=== PATIENT | female | born 2000 | race Caucasian/White ===

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

== ENCOUNTER → 2021-01-11 14:55 | Outpatient (BNVA) | payer BC, SELFPAY | PROVIDERS: PCP Nurse Practitioner Family; Visit Provider Nurse Practitioner Women's Health | DX: R10.2 Pelvic and perineal pain (principal); N93.9 Abnormal uterine and vaginal bleeding, unspecified | CPT/HCPCS: 84443; 84702; 85025; 87491; 87591; 87661 ==

== ENCOUNTER → 2021-01-16 14:00 | Outpatient (BNVA) | payer BC, SELFPAY | PROVIDERS: PCP Nurse Practitioner Family; Visit Provider Nurse Practitioner Women's Health | DX: R10.32 Left lower quadrant pain (principal) | CPT/HCPCS: 76830 ==

== ENCOUNTER 2021-01-31 23:41 | Emergency (ER) | payer OTHER, SELFPAY ==
--- NOTE | 2021-01-31 23:46 | ED_ITS ---
HPI - Wound/Laceration General: Chief Complaint: Needlestick/Injury/Exposure Stated Complaint: NEED STICK Time Seen by Provider: 01/31/21 23:43 History of Present Illness: HPI narrative: Patient is a 20-year-old female comes to the ED with exposure to body fluids from patient. 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 She said that when she poked the patient quite a bit of blood started coming out and she went to close her needle with the safety. As she was closing the safety on the needle some blood splashed in her face near her eye. Patient immediately washed off blood. Denies any needle stick injury. Denies any symptoms. Associated symptoms: Denies chills, fever(s), nausea or vomiting Review of Systems Narrative: Accidental exposure to body fluids. Const: Denies: fever(s), chills or fatigue Eyes: Denies: change in vision or eye discomfort ENMT: Denies: throat pain, odynophagia, nasal discharge or nasal congestion Card: Denies: chest pain, palpitations, edema, swelling of feet/ankles, dyspnea on exertion or orthopnea Resp: Denies: dyspnea, productive cough or non-productive cough GI: Denies: abdominal pain, nausea, vomiting, diarrhea, constipation or hematochezia : Denies: flank pain, dysuria or hematuria Musc: Denies: neck pain, back pain or extremity swelling Skin/Breast: Denies: rash or new lesions Neuro: Denies: headache(s), numbness in extremities or weakness in extremities [facility] PFSH: Medical History History of tonsillitis No pertinent past medical history neghx: htn,dm,thyroid,dvt/pe PCP: Yusra Mills Surgical History History of reduction mammoplasty (~2019) Family History Grandmother Breast cancer Paternal--dx age unknown Diabetes Paternal Ovarian cancer Maternal--dx age 30 Father Hypertension Mother No problems noted. Family/Other Thyroid disease Paternal side in general Other Psychiatric illness Denies family history of Colon cancer Heart disease Hypercholesteremia Uterine cancer Stroke Social History Smoking and tobacco status: never smoked Alcohol intake: never Special daron needs: No Physical Exam Const: COMMON NORMALS: no acute distress, patient oriented x3, healthy appearing and alert GENERAL APPEARANCE: cooperative and comfortable HENMT: COMMON NORMALS: normocephalic HEAD & SCALP: normocephalic MOUTH: Normal oral and palatal mucosa present THROAT: posterior oropharynx normal and uvula midline Neck/C-Spine: COMMON NORMALS: supple GENERAL: Yes normal visual inspection Resp: COMMON NORMALS: normal respiratory effort, No retractions, No use of accessory muscles and clear to auscultation bilaterally AUSCULTATION: clear to auscultation bilaterally Cardio: COMMON NORMALS: regular rate, regular rhythm, S1 normal heart sound present, S2 normal heart sound present, No gallops present (Cardio), No clicks present (Cardio), No murmurs present (Cardio) and Peripheral pulses 2+ throughout RATE: regular rate RHYTHM: regular rhythm HEART SOUNDS: S1 normal heart sound present and S2 normal heart sound present PERIPHERAL PULSES: Peripheral pulses 2+ throughout GI: COMMON NORMALS: Normal to inspection, nondistended, normoactive bowel sounds present, Soft to palpation, non-tender and no masses PALPATION: Yes Soft to palpation : COMMON NORMALS: Yes no CVA tenderness BLADDER/KIDNEY EXAM: Yes no CVA tenderness Back/Pelvis: COMMON NORMALS: no CVA tenderness Extremity: COMMON NORMALS: normal to inspection Neuro: COMMON NORMALS: patient oriented x3 SENSORIUM/ORIENTATION: Yes alert Skin: GENERAL SKIN EXAM: dry skin Course Vital Signs: Vital signs: Vital Signs Temperature 97.8 F 02/01/21 00:12 Pulse Rate 77 02/01/21 00:12 Respiratory Rate 18 02/01/21 00:12 Blood Pressure 116/72 02/01/21 00:12 Pulse Oximetry 99 02/01/21 00:12 MDM - Wound/Laceration MDM Narrative: Medical decision making narrative: Patient is a 20-year-old female comes in the ED with accidental body and body fluid exposure. Patient is a program administrator here at [employer] and says that when she was getting blood from a patient some splashed on her face near her right eye. She immediately cleaned it off and is asymptomatic and has no complaints. Hepatitis and HIV labs were performed and all were nonreactive. Patient was instructed to have repeat hepatitis and HIV labs done in 2 to 4 months. Return to ED precautions given. Worker's Comp. paperwork was filled out and signed. Patient understood and agreed with plan. Lab Data: Labs: Lab Results 01/31/21 01/31/21 Range/Units 23:40 23:40 Hepatitis A IgM Ab Non-reactive (Nonreactive) Hep Bs Antigen Non-reactive (Nonreactive) Hep Bs Antibody 29.1 (11.5-1000) Hep B Core Total A b Non-reactive (Nonreactive) Hepatitis C Antibo dy Non-reactive (Nonreactive) HIV 1&2 Ab & HIV 1 Ag Non-reactive (Non-Reactiv) HIV 1&2 Antibody Non-reactive (Non-Reactiv) Discharge Plan Discharge Patient Disposition: Home Clinical Impression: Exposure to blood or body fluid Condition: Stable Prescriptions: No Action albuterol sulfate 90 mcg/actuation HFA aerosol inhaler 2 puff inhalation Q6H PRNRF: 0 medroxyprogesterone [Depo-Provera] 150 mg/mL suspension IM RF: 0 Discharge Orders: Discharge ED (Routine); Ordered 02/01/21 Ordered By: Bartolome Garnica Referrals: Yusra Mills FNP [Primary Care Provider] - Discharge Diet: Regular Discharge Activity: Resume usual activity Patient Instructions: Blood/Body Fluid Exposure - Occupational, Body Substance Exposure (ED) Activity Restrictions/Additional Instructions: Follow-up with medical provider as directed. Have repeat HIV and hepatitis panel labs done in the next 2 to 4 months. Return to the ER or your medical provider if condition worsens. Please read and understand discharge instructions. Thank you for choosing [facility] for your healthcare needs today. Please realize this is an emergency room and that we are providing you with a medical screening exam and this may not be complete and all inclusive of all the testing and or work up that you may need to determine your ailment or severity of your illness. It is very important that you follow up as instructed or that you return to the Emergency Department should you have concerns or if your condition changes or worsens in any way. Coding Level of Care Code ED Boiler Repair Supervisor for Radha Fwclaudio Exam Detailed
[2021-02-01 00:12] VITALS: BP 116/72; PULSE 77; RESP 18; TEMP 36.6; O2SAT 99; BMI 23.3
[2021-02-01 00:31] LABS: HIV 1 & 2 Antibody Non-Reactive (Non-Reactiv); HIV 1 & 2 Antigen Non-Reactive (Non-Reactiv)
[2021-02-01 00:44] LABS: Hepatitis A Antibody IgM Non-Reactive (Nonreactive); Hepatitis B Core AB, Total Non-Reactive (Nonreactive); Hepatitis B Surface AB 29.1 (11.5-1000); Hepatitis B Surface Antigen Non-Reactive (Nonreactive); Hepatitis C Virus Antibody Non-Reactive (Nonreactive)
== END 2021-02-01 00:22 | disposition home or self-care (01) ==
LOC: ER 02-01 00:19
PROVIDERS: Emergency Provider Physician Assistant; PCP Nurse Practitioner Family
DX: Z77.21 Contact with and (suspected) exposure to potentially hazardous body fluids (principal); Y99.0 Civilian activity done for income or pay
CPT/HCPCS: 86705; 86706; 86709; 86803; 87340; 87806; 99282

== ENCOUNTER 2021-08-04 17:20 | Emergency (ER) | payer BC, SELFPAY ==
[2021-08-04 17:25] VITALS: BP 131/91; PULSE 96; RESP 18; TEMP 36.7; O2SAT 97; BMI 25.8
--- NOTE | 2021-08-04 17:31 | ED_ITS ---
HPI - Nausea/Vomiting/Diarrhea General: Chief complaint: Nausea/Vomiting/Diarrhea Stated complaint: Nausea after Tonsillectomy Time Seen by Provider: 08/04/21 17:31 History of Present Illness: HPI Narrative: 20-year-old female comes in for evaluation for nausea and vomiting. Patient had her tonsils removed on the by Dr. Balderas. Today patient was throwing up and was eating poorly. Mother reports that patient family has issues with nausea and vomiting post anesthesia. Mother did report last night she had a small amount of blood in 1 emesis. No blood has been noted today. Patient appears mildly unwell. Patient appears no acute distress. Patient appears in mild to moderate pain. Associated nausea: Yes Associated symtoms: Reports nausea Review of Systems General: Reports: 10 or more systems reviewed and unremarkable except in HPI and below GI: Reports: nausea and vomiting PFSH ED PFSH: Medical History History of tonsillitis No pertinent past medical history neghx: htn,dm,thyroid,dvt/pe PCP: Yusra Mills Surgical History History of reduction mammoplasty (~2019) Family History Grandmother Breast cancer Paternal--dx age unknown Diabetes Paternal Ovarian cancer Maternal--dx age 30 Father Hypertension Mother No problems noted. Family/Other Thyroid disease Paternal side in general Other Psychiatric illness Denies family history of Colon cancer Heart disease Hypercholesteremia Uterine cancer Stroke Social History Smoking and tobacco status: never smoked Alcohol intake: never Special daron needs: No Physical Exam Const: COMMON NORMALS: no acute distress and patient oriented x3 GENERAL APPEARANCE: cooperative HENMT: COMMON NORMALS: normocephalic, TM's normal bilaterally and Normal external nose present HEAD & SCALP: normal to inspection and normocephalic NOSE: Normal external nose present TYMPANIC MEMBRANE: TM's normal bilaterally MOUTH: Normal oral and palatal mucosa present THROAT: other (Exudate to bilateral throat, absent tonsils, no significant swelling or asy) Eye: GENERAL EYE: appearance normal, both eyes and all related structures Neck/C-Spine: COMMON NORMALS: full ROM Lymph: LYMPHATIC: no lymphadenopathy noted Chest: COMMONS NORMALS: normal inspection of the chest Resp: COMMON NORMALS: normal respiratory effort EFFORT & INSPECTION: Yes able to speak in complete sentences Cardio: COMMON NORMALS: regular rate and regular rhythm RATE: regular rate RHYTHM: regular rhythm GI: COMMON NORMALS: Soft to palpation and non-tender AUSCULTATION: Yes normoactive bowel sounds PALPATION: Yes Soft to palpation Back/Pelvis: COMMON NORMALS: thoracic and lumbar spine normal to inspection Extremity: COMMON NORMALS: normal to inspection Neuro: COMMON NORMALS: patient oriented x3 and moves all extremities Psych: COMMON NORMALS: mental status grossly normal and cooperative Skin: COMMON NORMALS: no rashes or lesions noted GENERAL SKIN EXAM: no rashes or lesions noted Course ED course: 1834, patient is much improved and is more relaxed after half a milligram of IV Ativan. Patient continues to have some mild nausea but states that she feels better. We are infusing 1 L of IV fluid. Patient will be given 2 mg of IV morphine for her complaints of throat discomfort. I will give her 1 dose of famotidine 40 mg for some complaints of reflux. 1914, patient continues to improve and her and her mother request to go home. Recommended that we hold the gabapentin as this may be causing her lability and hyperkinesia. Mother agreed with planned. Patient also agreed with instructions. Vital Signs: Vital signs: Vital Signs Temperature 98.1 F 08/04/21 17:25 Pulse Rate 107 H 08/04/21 17:52 Respiratory Rate 16 08/04/21 18:43 Blood Pressure 141/84 08/04/21 17:52 Pulse Oximetry 98 08/04/21 17:52 MDM - Nausea/Vomiting/Diarrhea MDM Narrative: Medical decision making narrative: Patient came in for nausea and vomiting, irritability, and restlessness. Patient reports that she has been using the gabapentin that had been ordered for her after surgery to help with nausea and vomiting. Patient reports increase in symptoms and restlessness and mobility at with using medication. On exam posterior pharynx is pink with some exudate in the areas of tonsillar extraction. No significant swelling or abnormality is noted. No anterior cervical lymphadenopathy. Patient has normal voice. Vital signs are normal. Differential diagnosis includes but not limited to adverse drug effect due to gabapentin/anesthesia, urinary tract infection, dehydration. Laboratory values were unremarkable. Patient was given 1 L of IV fluids, Zofran, and 2 mg of Ativan for her symptoms. Patient had improvement of nausea. Patient had been reporting some complaints of reflux she was given famotidine IV. Patient had some throat discomfort and was treated with 2 mg of morphine IV. Patient had cessation of symptoms will continue with Zofran and hydrocodone at home and will stop the Neurontin. Patient was given 2 tablets of Zofran to take home with her. Lab Data: Labs: Lab Results 08/04/21 08/04/21 08/04/21 18:04 18:04 18:04 WBC 7.5 10^3/uL 10^3/ uL (4.5-13.0) RBC 4.51 10^6/uL 10^6 /uL (4.1-5.3) Hgb 13.0 g/dL g/dL (11.5-15.3) Hct 39.4 % % (37.0-47.0) MCV 87.4 fl fl (81-99) MCH 28.8 pg pg (28.0-34.0) MCHC 33.0 g/dL g/dL (30.0-36.0) RDW 11.5 % L % (12.1-15.1) Plt Count 289 10^3/cmm 10^3 /cmm (130-400) MPV 10.0 fL fL (7.4-10.4) Neut % (Auto) 57.8 % % Lymph % (Auto) 29.5 % % [place] % (Auto) 9.9 % % Eos % (Auto) 1.7 % % Baso % (Auto) 0.8 % % Neut # (Auto) 4.33 10^3/uL 10^3 /uL (1.8-8.0) Lymph # (Auto) 2.2 10^3/uL 10^3/ uL (1.5-6.5) [place] # (Auto) 0.7 10^3/uL 10^3/ uL (0.2-0.9) Eos # (Auto) 0.1 10^3/uL 10^3/ uL (0.0-0.8) Baso # (Auto) 0.1 10^3/uL 10^3/ uL (0.0-0.1) Nucleated RBC % (a uto) 0 % % Nucleated RBCs # 0.0 /100WBC /100W BC Sodium 134 mmol/L L mmol /L (136-145) Potassium 3.8 mmol/L mmol/L (3.5-5.1) Chloride 98 mmol/L mmol/L (98-107) Carbon Dioxide 25 mmol/L mmol/L (22-29) Anion Gap 14.8 (5-19) BUN 11 mg/dL mg/dL (6-20) Creatinine 0.6 mg/dL mg/dL (0.5-0.9) GFR Calculation 128.8 mL/min mL/m in (90-130) Glucose 95 mg/dL mg/dL (65-115) Calculated Osmolal ity 277 mOsm/kg L mOs m/kg (285-295) Calcium 9.3 mg/dL mg/dL (8.5-10.5) Total Bilirubin 0.3 mg/dL mg/dL (0.15-1.2) AST 15 U/L U/L (0-32) ALT 11 U/L U/L (0-33) Alkaline Phosphata se 53 IU/L IU/L (35-105) Total Protein 7.1 g/dL g/dL (6.6-8.7) Albumin 4.5 g/dL g/dL (3.5-5.2) Globulin 2.6 g/dL g/dL (1.3-4.6) HCG, Qual Negative (Negative) Urine Color Urine Appearance Urine pH Ur Specific Gravit y Urine Protein Urine Glucose (UA) Urine Ketones Urine Blood Urine Nitrate Urine Bilirubin Urine Urobilinogen Ur Leukocyte Chary ase Urine RBC Urine WBC Ur Squamous Epith Cells Amorphous Sediment Urine Bacteria 08/04/21 18:04 WBC RBC Hgb Hct MCV MCH MCHC RDW Plt Count MPV Neut % (Auto) Lymph % (Auto) [place] % (Auto) Eos % (Auto) Baso % (Auto) Neut # (Auto) Lymph # (Auto) [place] # (Auto) Eos # (Auto) Baso # (Auto) Nucleated RBC % (a uto) Nucleated RBCs # Sodium Potassium Chloride Carbon Dioxide Anion Gap BUN Creatinine GFR Calculation Glucose Calculated Osmolal ity Calcium Total Bilirubin AST ALT Alkaline Phosphata se Total Protein Albumin Globulin HCG, Qual Urine Color Straw (Yellow) Urine Appearance Sl hazy (CLEAR) Urine pH 6.5 (5-7) Ur Specific Gravit y 1.010 (1.005-1.030) Urine Protein Neg (Negative) Urine Glucose (UA) Norm (Normal) Urine Ketones Negative (Negative) Urine Blood Neg (Negative) Urine Nitrate Negative (Negative) Urine Bilirubin Neg (Negative) Urine Urobilinogen Norm mg/dL mg/dL (Negative) Ur Leukocyte Chary ase Negative (Negative) Urine RBC 0-4 /hpf H /hpf (0-2) Urine WBC 5-10 /hpf H /hpf (0-5) Ur Squamous Epith Cells 25-40 /hpf H /hpf (0-5) Amorphous Sediment 2+ /hpf /hpf Urine Bacteria 3+ /hpf H /hpf (NONE) Discharge Plan Discharge Patient Disposition: Home Clinical Impression: S/P tonsillectomy Nausea & vomiting Qualifiers: Vomiting type: unspecified Vomiting Intractability: non-intractable Qualified Code(s): R11.2 - Nausea with vomiting, unspecified Adverse drug effect Qualifiers: Encounter type: initial encounter Qualified Code(s): T50.905A - Adverse effect of unspecified drugs, medicaments and biological substances, initial encounter Condition: Stable Prescriptions: New ondansetron 4 mg tablet,disintegrating 4 mg PO Q6H PRN (Reason: nausea and vomiting) Qty: 14 RF: 0 No Action albuterol sulfate 90 mcg/actuation HFA aerosol inhaler 2 puff inhalation Q6H PRNRF: 0 medroxyprogesterone [Depo-Provera] 150 mg/mL suspension IM RF: 0 Discharge Orders: Discharge ED (Routine); Ordered 08/04/21 Ordered By: Shyam Cristobal Referrals: [facility], [Primary Care Provider] - Discharge Diet: Usual diet Discharge Activity: Increase activity as tolerated Patient Instructions: Acute Nausea and Vomiting (ED), Opioid Safety Activity Restrictions/Additional Instructions: Home and rest. Drink frequent sips of fluids to maintain hydration. Stop gabapentin, Neurontin. Use ondansetron for nausea and vomiting. Monitor for fever greater than 100.4. Monitor for increased bleeding with blood in vomit or stool. Return to the ER for any new concerns or worsening symptoms. Follow-up with surgeons as needed. Coding Level of Care Code ED Ironer Machine for Radha Fwd Exam Comprehensive
[2021-08-04 17:52] VITALS: BP 141/84; PULSE 107; RESP 20; O2SAT 98
[2021-08-04] MEDS: dexamethasone 4 mg/mL INJ IVP (18:00)
[2021-08-04] MEDS: ondansetron 2 mg/ML SDV 2 mL 4 MG IVP (18:09)
[2021-08-04 18:10] LABS: Basophils # 0.1 10^3/uL (0.0-0.1); Basophils % 0.8 %; Eosinophils # 0.1 10^3/uL (0.0-0.8); Eosinophils % 1.7 %; Hematocrit 39.4 % (37.0-47.0); Lymphocytes # 2.2 10^3/uL (1.5-6.5); Lymphocytes % 29.5 %; Mean Corpuscular Hemoglobin 28.8 pg (28.0-34.0); Mean Corpuscular Volume 87.4 fl (81-99); Monocytes # 0.7 10^3/uL (0.2-0.9); Monocytes % 9.9 %; Neutrophils # 4.33 10^3/uL (1.8-8.0); Neutrophils % 57.8 %; Nucleated Red Blood Cells % 0 %; Platelet Count 289 10^3/cmm (130-400); Red Blood Count 4.51 10^6/uL (4.1-5.3); Red Cell Distribution Width 11.5 % (12.1-15.1); White Blood Count 7.5 10^3/uL (4.5-13.0)
[2021-08-04] MEDS: LORazepam 2 mg/mL INJ 1 mL 0.5 MG IVP (18:10)
[2021-08-04] MEDS: sodium chloride 0.9% 1,000 ML 999 ML IV (18:10)
[2021-08-04 18:25] LABS: Urine Appearance SL Hazy (CLEAR); Urine Color Straw (Yellow)
[2021-08-04 18:26] LABS: pH Urine 6.5 (5-7)
[2021-08-04 18:27] LABS: Add Urine Microscopic? YES; Bilirubin Urine Neg (Negative); Blood Urine Neg (Negative); Glucose Urine UA Norm (Normal); Ketones Urine Negative (Negative); Leukocyte Esterase Urine Negative (Negative); Nitrate Urine Negative (Negative); Protein Urine Neg (Negative); Urobilinogen Urine Norm (Negative)
[2021-08-04 18:28] LABS: RBC Urine 0-4 /hpf (0-2)
[2021-08-04 18:29] LABS: Add Urine Culture? No; Amorphous Sediment Urine 2+ /hpf; Bacteria Urine 3+ /hpf; Squamous Epithelial Cell Urine 25-40 /hpf (0-5)
--- NOTE | 2021-08-04 18:31 | PC.NURSE ---
Pt states she feels like she has been able to calm down after getting to Ativan but states she is still having pain in her throat from all the vomiting. [employer] Susu advised, new orders entered.
[2021-08-04 18:43] VITALS: RESP 16
[2021-08-04] MEDS: famotidine 20 mg/2 mL INJ 40 MG IVP (18:43)
[2021-08-04] MEDS: morphine 4 mg/mL SDV 1 mL 2 MG IVP (18:43)
[2021-08-04 18:45] LABS: HCG, Serum Qual Negative (Negative)
[2021-08-04 18:47] LABS: Alanine Aminotransferase 11 U/L (0-33); Albumin Level 4.5 g/dL (3.5-5.2); Alkaline Phosphatase 53 IU/L (35-105); Anion Gap 14.8 (5-19); Aspartate Amino Transferase 15 U/L (0-32); Blood Urea Nitrogen 11 mg/dL (6-20); Calcium 9.3 mg/dL (8.5-10.5); Carbon Dioxide 25 mmol/L (22-29); Chloride 98 mmol/L (98-107); Globulin 2.6 g/dL (1.3-4.6); Glomerular Filtration Rate 128.8 mL/min (90-130); Glucose 95 mg/dL (65-115); Osmolality Calculated 277 mOsm/kg (285-295); Potassium 3.8 mmol/L (3.5-5.1); Sodium 134 mmol/L (136-145); Total Bilirubin 0.3 mg/dL (0.15-1.2); Total Protein 7.1 g/dL (6.6-8.7)
--- NOTE | 2021-08-04 18:56 | PC.NURSE ---
pt refused Dexamethasone
[2021-08-04 19:34] VITALS: BP 141/87; PULSE 78; RESP 16; TEMP 37.1; O2SAT 98
== END 2021-08-04 19:38 | disposition home or self-care (01) ==
PROVIDERS: Emergency Provider Nurse Practitioner Family
DX: R11.2 Nausea with vomiting, unspecified (principal); T50.905A Adverse effect of unspecified drugs, medicaments and biological substances, initial encounter; Z98.890 Other specified postprocedural states
CPT/HCPCS: 80053; 81001; 84703; 85025; 96361; 96374; 96375; 99284; J1100; J2060; J2270; J2405; J3490; J7030

== ENCOUNTER → 2021-11-12 09:21 | Outpatient (BNVA) | payer BC, SELFPAY | PROVIDERS: Visit Provider Family Medicine | DX: R19.8 Other specified symptoms and signs involving the digestive system and abdomen (principal); N39.0 Urinary tract infection, site not specified | CPT/HCPCS: 81000 ==

== ENCOUNTER 2021-11-14 08:50 | Outpatient (CLI) | payer BC, SELFPAY ==
--- NOTE | 2021-11-14 09:26 | XR_ITS ---
WS: [id number] KUB, AP view, 11/14/2021 Clinical Data: LUQ pain, nausea and vomiting Comparison: None. Findings: No abnormal intraabdominal masses or calcifications are seen. There is no dilatated small bowel or ev idence of obstruction. There is a moderate amount of fecal material throughout the colon. XR/XR KUB [id number] Impression: Negative KUB.
[2021-11-14 09:43] LABS: Basophils # 0.1 10^3/uL (0.0-0.1); Basophils % 1.8 %; Eosinophils # 0.1 10^3/uL (0.0-0.8); Eosinophils % 2.8 %; Hematocrit 38.9 % (37.0-47.0); Hemoglobin 11.9 g/dL (11.5-15.3); Lymphocytes # 1.6 10^3/uL (1.5-6.5); Lymphocytes % 49.5 %; Mean Corpuscular HGB Conc 30.6 g/dL (30.0-36.0); Mean Corpuscular Volume 84.9 fl (81-99); Mean Platelet Volume 10.6 fL (7.4-10.4); Monocytes # 0.4 10^3/uL (0.2-0.9); Monocytes % 11.6 %; Neutrophils # 1.12 10^3/uL (1.8-8.0); Neutrophils % 34.3 %; Nucleated Red Blood Cells % 0 %; Platelet Count 290 10^3/cmm (130-400); Red Blood Count 4.58 10^6/uL (4.1-5.3); Red Cell Distribution Width 12.8 % (12.1-15.1); White Blood Count 3.3 10^3/uL (4.5-13.0)
[2021-11-14 10:00] LABS: HCG Qualitative Urine. Negative (Negative)
[2021-11-14 10:10] LABS: Alanine Aminotransferase 22 U/L (0-33); Albumin Level 4.9 g/dL (3.5-5.2); Alkaline Phosphatase 63 IU/L (35-105); Blood Urea Nitrogen 8 mg/dL (6-20); Calcium 8.7 mg/dL (8.5-10.5); Carbon Dioxide 23 mmol/L (22-29); Chloride 108 mmol/L (98-107); Globulin 2.1 g/dL (1.3-4.6); Glomerular Filtration Rate 92.4 mL/min (90-130); Glucose 89 mg/dL (65-115); Lipase 38 U/L (13-60); Osmolality Calculated 294 mOsm/kg (285-295); Sodium 143 mmol/L (136-145); Total Bilirubin 0.6 mg/dL (0.15-1.2)
[2021-11-14 10:12] LABS: Anion Gap 16.2 (5-19); Aspartate Amino Transferase 73 U/L (0-32); Potassium 4.2 mmol/L (3.5-5.1)
== END 2021-11-14 08:51 | disposition home or self-care (01) ==
PROVIDERS: Visit Provider Family Medicine
DX: R10.12 Left upper quadrant pain (principal); N89.8 Other specified noninflammatory disorders of vagina; R11.2 Nausea with vomiting, unspecified
CPT/HCPCS: 36415; 74018; 80053; 81025; 83690; 85025; 86140; 87491; 87591

== ENCOUNTER 2021-11-14 15:43 | Emergency (ER) | payer BC, SELFPAY ==
[2021-11-14 16:37] VITALS: BP 120/75; PULSE 80; RESP 19; TEMP 37.1; O2SAT 99; BMI 27.4
--- NOTE | 2021-11-14 17:28 | W.ED.ABDPA2 ---
HPI - Abdominal Pain General: Chief Complaint: Abdominal Pain Stated Complaint: PCP sent due to labs Time Seen by Provider: 11/14/21 17:03 History of Present Illness: 20-year-old female comes in today with complaints of malaise for about 4 to 5 days and poor appetite. Patient also reports some right upper quadrant abdominal pain. Patient was seen at her primary care physician Dr. Schaefer's office today and lab work showed some decrease in her white blood cell count and elevation in her liver enzymes. He wanted her seen at the emergency room due to right upper quadrant pain and concern for infected gallbladder. Patient appears mildly unwell. Patient appears in no acute distress. Patient has been on an antibiotic for urinary tract infection for 3 to 5 days. MD elicited complaint: abdominal pain Pertinent past history: none Pain Consistency: intermittent Location: RUQ Severity: moderate Quality: fullness Radiation: none Review of Systems General: Reports: 10 or more systems reviewed and unremarkable except in HPI and below GI: Reports: abdominal pain PFSH ED PFSH: Medical History History of tonsillitis No pertinent past medical history neghx: htn,dm,thyroid,dvt/pe PCP: Y[facility] Surgical History History of reduction mammoplasty (~2019) Family History Grandmother Breast cancer Paternal--dx age unknown Diabetes Paternal Ovarian cancer Maternal--dx age 30 Father Hypertension Mother No problems noted. Family/Other Thyroid disease Paternal side in general Other Psychiatric illness Denies family history of Colon cancer Heart disease Hypercholesteremia Uterine cancer Stroke Social History Smoking and tobacco status: never smoked Alcohol intake: never Special daron needs: No Physical Exam Const: COMMON NORMALS: alert HENMT: COMMON NORMALS: normocephalic HEAD & SCALP: normocephalic THROAT: posterior oropharynx abnormal cobblestoning Eye: COMMON NORMALS: Equal, round and reactive pupils present and EOMs intact bilaterally PUPIL: Yes Equal, round and reactive pupils present Neck/C-Spine: COMMON NORMALS: full ROM and no meningeal signs GENERAL: Yes lymphadenopathy Lymphadenopathy location: anterior cervical Resp: COMMON NORMALS: normal respiratory effort and clear to auscultation bilaterally AUSCULTATION: clear to auscultation bilaterally Cardio: COMMON NORMALS: regular rate and regular rhythm RATE: regular rate RHYTHM: regular rhythm GI: COMMON NORMALS: Soft to palpation AUSCULTATION: Yes normoactive bowel sounds PALPATION: Yes Soft to palpation and Yes Tenderness to palpation present (GI) Details: RUQ : COMMON NORMALS: Yes no CVA tenderness BLADDER/KIDNEY EXAM: Yes no CVA tenderness Back/Pelvis: COMMON NORMALS: no CVA tenderness Extremity: COMMON NORMALS: full ROM Neuro: SENSORIUM/ORIENTATION: Yes alert MENINGEAL SIGNS: Yes no meningeal signs Psych: COMMON NORMALS: cooperative Skin: COMMON NORMALS: no rashes or lesions noted GENERAL SKIN EXAM: no rashes or lesions noted Course Vital Signs: Vital signs: Vital Signs Temperature 98.8 F 11/14/21 16:37 Pulse Rate 80 11/14/21 16:37 Respiratory Rate 19 H 11/14/21 16:37 Blood Pressure 120/75 11/14/21 16:37 Pulse Oximetry 99 11/14/21 16:37 MDM - Abdominal Pain Medical Decision Making 20-year-old female comes in today with poor appetite, abdominal discomfort, and malaise for 1 week. Patient at first thought she had a urinary tract infection was seen by her primary care who treated her with Cipro. Patient was seen back at the primary care office today and he was concerned due to her abdominal pain that it may be cholecystitis or other abdominal pathology due to a low white blood cell count and elevation in her liver enzymes. On exam patient is alert and oriented. Patient has some cobblestoning in her posterior pharynx, anterior cervical lymphadenopathy, abdomen was soft with tenderness in the right upper quadrant, vital signs were normal. Differential diagnosis includes but not limited to viral syndrome, cholecystitis, cholelithiasis, gastroenteritis, pyelonephritis. Reviewed labs from earlier today noted a white blood cell count of 3.7, and AST's that was in the 70s. No other abnormality was noted. test was negative. Repeated urinalysis in the emergency department that she was unremarkable. CBC noted a white blood cell count of 4.3 with a manual differential showing just a decreased number of neutrophils. CT of the abdomen pelvis was normal. I believe the patient probably has a viral syndrome and the white blood cell count and the liver enzyme abnormalities are reactive. Patient was given 1500 mL of IV fluids due to her poor oral intake. Patient was given a dose of meclizine for some complaints of nausea. I recommended patient continue with drinking plenty of fluids and using acetaminophen and ibuprofen for discomfort. Recommend return to the ER for uncontrolled abdominal pain or blood in vomit or stool. Patient reported understanding and agreed to plan. Lab Data : 11/14/21 18:18 Labs/Radiology: Radiology Impressions Abdomen/Pelvis CT 11/14/21 17:35 IMPRESSION: No acute finding. Laboratory Results WBC 4.3 10^3/uL (4.5-13.0) L 11/14/21 18:18 RBC 4.28 10^6/uL (4.1-5.3) 11/14/21 18:18 Hgb 11.2 g/dL (11.5-15.3) L 11/14/21 18:18 Hct 36.0 % (37.0-47.0) L 11/14/21 18:18 MCV 84.1 fl (81-99) 11/14/21 18:18 MCH 26.2 pg (28.0-34.0) L 11/14/21 18:18 MCHC 31.1 g/dL (30.0-36.0) 11/14/21 18:18 RDW 12.9 % (12.1-15.1) 11/14/21 18:18 Plt Count 296 10^3/cmm (130-400) 11/14/21 18:18 MPV 10.5 fL (7.4-10.4) H 11/14/21 18:18 Total Counted 100 (0-100) 11/14/21 18:18 Atypical Lymphs % 0.0 % (0-5) 11/14/21 18:18 Absolute Neutrophils 1.5 10^3/cmm (1.4-6.5) 11/14/21 18:18 Segmented Neutrophils 36 % 11/14/21 18:18 Abs Segm Neuts (Man) 1.5 10/cmm (1.6-7.1) L 11/14/21 18:18 Band Neutrophils 0.0 % 11/14/21 18:18 Abs Band Neuts (Man) 0.0 10^3/cmm (0.0-1.2) 11/14/21 18:18 Absolute Lymphocytes 2.4 10^3/cmm (1.2-3.4) 11/14/21 18:18 Lymphocytes (Manual) 56 % 11/14/21 18:18 Monocytes (Manual) 6.0 % 11/14/21 18:18 Absolute Monocytes 0.3 10^3/cmm (0.1-0.6) 11/14/21 18:18 Eosinophils (Manual) 2 % 11/14/21 18:18 Absolute Eosinophils 0.0 10^3/cmm (0.0-0.7) 11/14/21 18:18 Basophils (Manual) 0.0 % 11/14/21 18:18 Absolute Basophils 0.0 10^3/cmm (0.0-0.2) 11/14/21 18:18 Platelet Estimate Normal (Normal) 11/14/21 18:18 Urine Color Yellow (Yellow) 11/14/21 17:10 Urine Appearance Sl hazy (CLEAR) 11/14/21 17:10 Urine pH 7 (5-7) 11/14/21 17:10 Ur Specific [place] 1.015 (1.005-1.030) 11/14/21 17:10 Urine Protein Neg (Negative) 11/14/21 17:10 Urine Glucose (UA) Norm (Normal) 11/14/21 17:10 Urine Ketones 1+ (Negative) H 11/14/21 17:10 Urine Blood Neg (Negative) 11/14/21 17:10 Urine Nitrate Negative (Negative) 11/14/21 17:10 Urine Bilirubin Neg (Negative) 11/14/21 17:10 Urine Urobilinogen 1 mg/dL (Negative) H 11/14/21 17:10 Ur Leukocyte Esterase Negative (Negative) 11/14/21 17:10 Urine RBC None /hpf (0-2) 11/14/21 17:10 Urine WBC None /hpf (0-5) 11/14/21 17:10 Ur Squamous Epith Cells 0-4 /hpf (0-5) H 11/14/21 17:10 Amorphous Sediment 2+ /hpf 11/14/21 17:10 Urine Bacteria 1+ /hpf (NONE) H 11/14/21 17:10 Discharge Plan Discharge Patient Disposition: Home Clinical Impression: Viral syndrome Abdominal pain Qualifiers: Abdominal location: right upper quadrant Qualified Code(s): R10.11 - Right upper quadrant pain Condition: Stable Prescriptions: No Action albuterol sulfate 90 mcg/actuation HFA aerosol inhaler 2 puff inhalation Q6H PRN0RF medroxyprogesterone [Depo-Provera] 150 mg/mL suspension IM 0RF ciprofloxacin HCl 500 mg tablet 500 mg PO Q12H Qty: 14 0RF ondansetron 4 mg tablet,disintegrating 4 mg PO Q6H PRN (Reason: nausea and vomiting) Qty: 14 0RF Discharge Orders: Discharge ED (Routine); Ordered 11/14/21 Ordered By: Shyam Cristobal Discharge Diet: Usual diet Discharge Activity: Increase activity as tolerated Patient Instructions: Abdominal Pain (ED) Activity Restrictions/Additional Instructions: Home and rest. Drink plenty of fluids. Use acetaminophen and ibuprofen for pain. Follow-up with primary care in 1 week for recheck. Return to ER for new concerns or worsening symptoms. Coding Level of Care Code ED Credit [employer] Teller for Radha Fwd Exam Comprehensive
--- NOTE | 2021-11-14 17:35 | CTR_ITS ---
PROCEDURE INFORMATION: Exam: CT Abdomen And Pelvis With Contrast Exam date and time: 11/14/2021 5:35 PM Age: 20 years old Clinical indication: Abdominal pain; Localized; Right upper quadrant (ruq); Additional info: Ruq abd pain TECHNIQUE: Imaging protocol: Computed tomography of the abdomen and pelvis with contrast. Radiation optimization: All CT scans at this facility use at least one of these dose optimization techniques: automated exposure control; mA and/or kV adjustment per patient size (includes targeted exams where dose is matched to clinical indication); or iterative reconstruction. Contrast material: OMNI 300; Contrast volume: 95 ml; Contrast route: INTRAVENOUS (IV); COMPARISON: CR XR KUB [id number] 11/14/2021 9:34 AM RADIATION DOSE METRICS: Total DLP (mGy-cm): 1301.37 FINDINGS: Liver: There is no focal abnormality within the liver. Gallbladder and bile ducts: The gallbladder is normal. There is no biliary tract dilatation. Pancreas: The pancreas is normal. Spleen: The spleen is normal. Adrenal glands: The adrenal glands are normal. Kidneys and ureters: The kidneys are normal. There is no evidence of hydronephrosis. There is no evidence of renal or ureteral calcifications. Stomach and bowel: There is no evidence of colitis/diverticulitis. Appendix: A normal appendix is identified. Intraperitoneal space: There is no evidence of free intraperitoneal fluid. Vasculature: The aorta is normal. Lymph nodes: There are small periaortic lymph nodes and mildly prominent mesenteric nodes but no adenopathy. Urinary bladder: Unremarkable as visualized. Reproductive: Unremarkable as visualized. Bones/joints: Unremarkable. No acute fracture. Soft tissues: Unremarkable. CT/CT abdomen pelvis w con* [id number] IMPRESSION: No acute finding.
[2021-11-14 17:42] LABS: Urine Appearance SL Hazy (CLEAR); Urine Color Yellow (Yellow)
[2021-11-14 17:43] LABS: Add Urine Microscopic? YES; Bilirubin Urine Neg (Negative); Blood Urine Neg (Negative); Glucose Urine UA Norm (Normal); Ketones Urine 1+ (Negative); Leukocyte Esterase Urine Negative (Negative); Nitrate Urine Negative (Negative); Protein Urine Neg (Negative); Specific Gravity, Urine 1.015 (1.005-1.030); Urobilinogen Urine 1 mg/dL (Negative); pH Urine 7 (5-7)
[2021-11-14 17:46] LABS: Add Urine Culture? No; Amorphous Sediment Urine 2+ /hpf; Bacteria Urine 1+ /hpf; Squamous Epithelial Cell Urine 0-4 /hpf (0-5)
[2021-11-14 18:32] LABS: Hemoglobin 11.2 g/dL (11.5-15.3); Mean Corpuscular HGB Conc 31.1 g/dL (30.0-36.0); Mean Corpuscular Hemoglobin 26.2 pg (28.0-34.0); Mean Corpuscular Volume 84.1 fl (81-99); Mean Platelet Volume 10.5 fL (7.4-10.4); Platelet Count 296 10^3/cmm (130-400); Red Blood Count 4.28 10^6/uL (4.1-5.3); Red Cell Distribution Width 12.9 % (12.1-15.1); White Blood Count 4.3 10^3/uL (4.5-13.0)
[2021-11-14] MEDS: iohexol 300 mg/mL 100 mL Btl IV (18:37)
[2021-11-14] MEDS: sodium chloride 0.9% 500 ML 999 ML IV (19:05)
[2021-11-14 19:08] LABS: Absolute Neutrophil 1.5 10^3/cmm (1.4-6.5); Absolute Segmented Neutrophil 1.5 10/cmm (1.6-7.1); Eosinophils 2 %; Lymphocytes 56 %; Lymphocytes Absolute 2.4 10^3/cmm (1.2-3.4); Monocytes Absolute 0.3 10^3/cmm (0.1-0.6); Platelet Estimate Normal (Normal); Segmented Neutrophils 36 %; Total Cells Counted 100 (0-100)
[2021-11-14] MEDS: meclizine 25 mg tablet PO (19:20)
[2021-11-14] MEDS: lactated ringers 1,000 ML 999 ML IV (19:41)
== END 2021-11-14 20:30 | disposition home or self-care (01) ==
PROVIDERS: Emergency Provider Nurse Practitioner Family
DX: B34.9 Viral infection, unspecified (principal); R10.11 Right upper quadrant pain
CPT/HCPCS: 74177; 81001; 85007; 85027; 86308; 96360; 96361; 99283; J7040; J8597; Q9967

== ENCOUNTER 2021-11-15 19:15 | Emergency (ER) | payer BC, SELFPAY ==
[2021-11-15 19:41] VITALS: BP 126/77; PULSE 74; RESP 18; TEMP 37.1; O2SAT 99; BMI 27.4
--- NOTE | 2021-11-16 00:02 | ED_ITS ---
HPI - Nausea/Vomiting/Diarrhea General: Chief complaint: Abdominal Pain Stated complaint: abd pain, N/V Time Seen by Provider: 11/15/21 23:53 History of Present Illness: Patient is a 20-year-old female comes to the ED with nausea, vomiting and a headache. Patient started having symptoms approximately 1 week ago. Patient was seen here yesterday November 14 for same complaint. She was seen by her PCP a week ago when symptoms started and she was tested for influenza and Covid and they were negative. She has been having fevers, chills, body aches, nasal congestion and drainage, sore throat, nausea/vomiting and headache. Today patient says she has not been able to keep any food or fluids down. She says she is having a really bad headache currently and worries that she is getting dehydrated. Patient says she has been sleeping a lot as well over the past 24 hours. [place] test was done last night but had to get sent out to the lab so results are still pending. She was put on cefdinir by her PCP Dr. Schaefer to treat her for possible UTI earlier this week. Associated nausea: Yes Associated symtoms: Reports fatigue, headache(s) and nausea; Denies change in vision, chest pain, dysuria or palpitations Review of Systems Const: Reports: fever(s), chills and fatigue Eyes: Denies: change in vision or eye discomfort ENMT: Reports: throat pain and nasal congestion; Denies: odynophagia or nasal discharge Card: Denies: chest pain, palpitations, edema, swelling of feet/ankles, dyspnea on exertion or orthopnea Resp: Denies: dyspnea, productive cough or non-productive cough GI: Reports: nausea and vomiting; Denies: abdominal pain, diarrhea, constipation or hematochezia : Denies: flank pain, dysuria or hematuria Musc: Denies: neck pain, back pain or extremity swelling Skin/Breast: Denies: rash or new lesions Neuro: Reports: headache(s); Denies: numbness in extremities or weakness in extremities PFS ED PFSH: Medical History History of tonsillitis No pertinent past medical history neghx: htn,dm,thyroid,dvt/pe PCP: Yus[facility] Surgical History History of reduction mammoplasty (~2019) Family History Grandmother Breast cancer Paternal--dx age unknown Diabetes Paternal Ovarian cancer Maternal--dx age 30 Father Hypertension Mother No problems noted. Family/Other Thyroid disease Paternal side in general Other Psychiatric illness Denies family history of Colon cancer Heart disease Hypercholesteremia Uterine cancer Stroke Social History Smoking and tobacco status: never smoked Alcohol intake: never Special daron needs: No Physical Exam Const: COMMON NORMALS: patient oriented x3 and alert GENERAL APPEARANCE: cooperative and comfortable HENMT: COMMON NORMALS: normocephalic HEAD & SCALP: normocephalic MOUTH: moist mucous membranes abnormal Details: parched THROAT: posterior oropharynx normal and uvula midline Neck/C-Spine: COMMON NORMALS: supple GENERAL: Yes normal visual inspection Resp: COMMON NORMALS: normal respiratory effort, No retractions, No use of accessory muscles and clear to auscultation bilaterally AUSCULTATION: clear to auscultation bilaterally Cardio: COMMON NORMALS: regular rate, regular rhythm, S1 normal heart sound present, S2 normal heart sound present, No gallops present (Cardio), No clicks present (Cardio), No murmurs present (Cardio) and Peripheral pulses 2+ throughout RATE: regular rate RHYTHM: regular rhythm HEART SOUNDS: S1 normal heart sound present and S2 normal heart sound present PERIPHERAL PULSES: Peripheral pulses 2+ throughout GI: COMMON NORMALS: Normal to inspection, nondistended, normoactive bowel sounds present, Soft to palpation, non-tender and no masses PALPATION: Yes Soft to palpation : COMMON NORMALS: Yes no CVA tenderness BLADDER/KIDNEY EXAM: Yes no CVA tenderness Back/Pelvis: COMMON NORMALS: no CVA tenderness Extremity: COMMON NORMALS: normal to inspection Neuro: COMMON NORMALS: patient oriented x3 SENSORIUM/ORIENTATION: Yes alert GAIT: Yes Normal gait present Skin: GENERAL SKIN EXAM: dry skin Course Vital Signs: Vital signs: Vital Signs Temperature 98.7 F 11/15/21 19:41 Pulse Rate 69 11/16/21 01:48 Respiratory Rate 17 11/16/21 01:48 Blood Pressure 127/59 11/16/21 00:15 Pulse Oximetry 97 11/16/21 01:48 MDM - Nausea/Vomiting/Diarrhea Medical Decision Making Patient is a 20-year-old female comes to the ED with nausea and vomiting and headache. Patient has been having flulike symptoms now for almost a week. She was seen here in the ED for same complaint yesterday and a CT of the abdomen was done and showed no acute findings. She was tested for influenza and Covid at her PCP office when symptoms first started almost a week ago and both were negative. Denies any cough or shortness of breath. She is currently on cefdinir as well to treat UTI. Vitals are stable. Exam is benign. Hemoglobin 10.1 and the rest of CBC and CMP were unremarkable. UA showed no signs of UTI. hCG negative. Patient was given IV fluids, Reglan and a dose of Solu-Medrol here in the ED. She was stable for discharged home and told to follow-up with her PCP in the next 3 to 5 days for reevaluation. She is diagnosed with viral syndrome and anemia. Return ED precautions given. Patient understood agree with plan. Lab Data I reviewed the patient's lab results. : 11/16/21 01:19 11/16/21 01:19 Laboratory Results WBC 4.4 10^3/uL (4.5-13.0) L 11/16/21 01:19 RBC 3.81 10^6/uL (4.1-5.3) L 11/16/21 01:19 Hgb 10.1 g/dL (11.5-15.3) L 11/16/21 01:19 Hct 32.6 % (37.0-47.0) L 11/16/21 01:19 MCV 85.6 fl (81-99) 11/16/21 01:19 MCH 26.5 pg (28.0-34.0) L 11/16/21 01:19 MCHC 31.0 g/dL (30.0-36.0) 11/16/21 01:19 RDW 12.9 % (12.1-15.1) 11/16/21 01:19 Plt Count 234 10^3/cmm (130-400) 11/16/21 01:19 MPV 10.4 fL (7.4-10.4) 11/16/21 01:19 Neut % (Auto) 25.2 % 11/16/21 01:19 Lymph % (Auto) 57.8 % 11/16/21 01:19 [place] % (Auto) 11.3 % 11/16/21 01:19 Eos % (Auto) 4.1 % 11/16/21 01:19 Baso % (Auto) 1.4 % 11/16/21 01:19 Neut # (Auto) 1.12 10^3/uL (1.8-8.0) L 11/16/21 01:19 Lymph # (Auto) 2.6 10^3/uL (1.5-6.5) 11/16/21 01:19 [place] # (Auto) 0.5 10^3/uL (0.2-0.9) 11/16/21 01:19 Eos # (Auto) 0.2 10^3/uL (0.0-0.8) 11/16/21 01:19 Baso # (Auto) 0.1 10^3/uL (0.0-0.1) 11/16/21 01:19 Nucleated RBC % (auto) 0 % 11/16/21 01:19 Nucleated RBCs # 0.0 /100WBC 11/16/21 01:19 Sodium 140 mmol/L (136-145) 11/16/21 01:19 Potassium 3.9 mmol/L (3.5-5.1) 11/16/21 01:19 Chloride 108 mmol/L (98-107) H 11/16/21 01:19 Carbon Dioxide 24 mmol/L (22-29) 11/16/21 01:19 Anion Gap 11.9 (5-19) 11/16/21 01:19 BUN 7 mg/dL (6-20) 11/16/21 01:19 Creatinine 0.6 mg/dL (0.5-0.9) 11/16/21 01:19 GFR Calculation 128.8 mL/min (90-130) 11/16/21 01:19 Glucose 101 mg/dL (65-115) 11/16/21 01:19 Calculated Osmolality 288 mOsm/kg (285-295) 11/16/21 01:19 Lactate 0.8 mmol/L (0.5-2.2) 11/16/21 01:19 Calcium 8.0 mg/dL (8.5-10.5) L 11/16/21 01:19 Total Bilirubin 0.2 mg/dL (0.15-1.2) 11/16/21 01:19 AST 40 U/L (0-32) H 11/16/21 01:19 ALT 17 U/L (0-33) 11/16/21 01:19 Alkaline Phosphatase 53 IU/L (35-105) 11/16/21 01:19 Total Protein 5.7 g/dL (6.6-8.7) L 11/16/21 01:19 Albumin 4.1 g/dL (3.5-5.2) 11/16/21 01:19 Globulin 1.6 g/dL (1.3-4.6) 11/16/21 01:19 Lipase 48 U/L (13-60) 11/16/21 01:19 HCG, Qual Negative (Negative) 11/16/21 00:45 Urine Color Yellow (Yellow) 11/16/21 00:45 Urine Appearance Cloudy (CLEAR) 11/16/21 00:45 Urine pH 6.5 (5-7) 11/16/21 00:45 Ur Specific [place] 1.020 (1.005-1.030) 11/16/21 00:45 Urine Protein Neg (Negative) 11/16/21 00:45 Urine Glucose (UA) Norm (Normal) 11/16/21 00:45 Urine Ketones Negative (Negative) 11/16/21 00:45 Urine Blood Trace (Negative) H 11/16/21 00:45 Urine Nitrate Negative (Negative) 11/16/21 00:45 Urine Bilirubin Neg (Negative) 11/16/21 00:45 Urine Urobilinogen 1 mg/dL (Negative) H 11/16/21 00:45 Ur Leukocyte Esterase Negative (Negative) 11/16/21 00:45 Urine RBC 0-4 /hpf (0-2) H 11/16/21 00:45 Urine WBC 0-4 /hpf (0-5) H 11/16/21 00:45 Ur Squamous Epith Cells 0-4 /hpf (0-5) H 11/16/21 00:45 Amorphous Sediment 4+ /hpf 11/16/21 00:45 Urine Bacteria 2+ /hpf (NONE) H 11/16/21 00:45 Urine Mucus Trace /hpf 11/16/21 00:45 Discharge Plan Discharge Patient Disposition: Home Clinical Impression: Viral syndrome Anemia Qualifiers: Anemia type: unspecified type Qualified Code(s): D64.9 - Anemia, unspecified Condition: Stable Prescriptions: New prednisone 20 mg tablet 20 mg PO BID 5 Days Qty: 10 0RF No Action albuterol sulfate 90 mcg/actuation HFA aerosol inhaler 2 puff inhalation Q6H PRN0RF medroxyprogesterone [Depo-Provera] 150 mg/mL suspension IM 0RF cefdinir 300 mg capsule 300 mg PO BID Qty: 20 0RF ondansetron 4 mg tablet,disintegrating 4 mg PO Q6H PRN (Reason: nausea and vomiting) Qty: 14 0RF meclizine 25 mg tablet 25 mg PO QID PRN (Reason: nausea and vomiting) Qty: 30 0RF Discharge Orders: Discharge ED (Routine); Ordered 11/16/21 Ordered By: Bartolome Garnica Discharge Diet: Regular Discharge Activity: Increase activity as tolerated Patient Instructions: Viral Syndrome (ED) Activity Restrictions/Additional Instructions: Follow-up with medical provider as directed in the next 3 to 5 days for reevaluation. Take medications as prescribed. Return to the ER or your medical provider if condition worsens. Please read and understand discharge instructions. Thank you for choosing [facility] for your healthcare needs today. Please realize this is an emergency room and that we are providing you with a medical screening exam and this may not be complete and all inclusive of all the testing and or work up that you may need to determine your ailment or severity of your illness. It is very important that you follow up as instructed or that you return to the Emergency Department should you have concerns or if your condition changes or worsens in any way. Coding Level of Care Code ED Senior Online Marketing Manager for Radha Cartagena Exam Comprehensive
[2021-11-16 00:15] VITALS: BP 127/59; PULSE 85; RESP 17; O2SAT 100
[2021-11-16] MEDS: ketorolac 30 mg/mL INJ IVP (00:34)
[2021-11-16] MEDS: sodium chloride 0.9% 1,000 ML 999 ML IV (00:35)
[2021-11-16] MEDS: ondansetron 2 mg/ML SDV 2 mL 4 MG IVP (00:35)
[2021-11-16 01:01] LABS: Urine Appearance Cloudy (CLEAR); Urine Color Yellow (Yellow); pH Urine 6.5 (5-7)
[2021-11-16 01:02] LABS: Add Urine Culture? Yes; Add Urine Microscopic? YES; Amorphous Sediment Urine 4+ /hpf; Bacteria Urine 2+ /hpf; Bilirubin Urine Neg (Negative); Blood Urine Trace (Negative); Glucose Urine UA Norm (Normal); Ketones Urine Negative (Negative); Leukocyte Esterase Urine Negative (Negative); Mucus Urine TRACE /hpf; Nitrate Urine Negative (Negative); Protein Urine Neg (Negative); RBC Urine 0-4 /hpf (0-2); Squamous Epithelial Cell Urine 0-4 /hpf (0-5); Urobilinogen Urine 1 mg/dL (Negative); WBC Urine 0-4 /hpf (0-5)
[2021-11-16 01:06] LABS: HCG Qualitative Urine. Negative (Negative)
[2021-11-16 01:25] LABS: Basophils # 0.1 10^3/uL (0.0-0.1); Basophils % 1.4 %; Eosinophils # 0.2 10^3/uL (0.0-0.8); Eosinophils % 4.1 %; Hematocrit 32.6 % (37.0-47.0); Hemoglobin 10.1 g/dL (11.5-15.3); Lymphocytes # 2.6 10^3/uL (1.5-6.5); Lymphocytes % 57.8 %; Mean Corpuscular Hemoglobin 26.5 pg (28.0-34.0); Mean Corpuscular Volume 85.6 fl (81-99); Mean Platelet Volume 10.4 fL (7.4-10.4); Monocytes # 0.5 10^3/uL (0.2-0.9); Monocytes % 11.3 %; Neutrophils # 1.12 10^3/uL (1.8-8.0); Neutrophils % 25.2 %; Nucleated Red Blood Cells % 0 %; Platelet Count 234 10^3/cmm (130-400); Red Blood Count 3.81 10^6/uL (4.1-5.3); Red Cell Distribution Width 12.9 % (12.1-15.1); White Blood Count 4.4 10^3/uL (4.5-13.0)
[2021-11-16 01:42] LABS: Alanine Aminotransferase 17 U/L (0-33); Albumin Level 4.1 g/dL (3.5-5.2); Alkaline Phosphatase 53 IU/L (35-105); Anion Gap 11.9 (5-19); Aspartate Amino Transferase 40 U/L (0-32); Blood Urea Nitrogen 7 mg/dL (6-20); Carbon Dioxide 24 mmol/L (22-29); Chloride 108 mmol/L (98-107); Globulin 1.6 g/dL (1.3-4.6); Glomerular Filtration Rate 128.8 mL/min (90-130); Glucose 101 mg/dL (65-115); Lipase 48 U/L (13-60); Osmolality Calculated 288 mOsm/kg (285-295); Potassium 3.9 mmol/L (3.5-5.1); Sodium 140 mmol/L (136-145); Total Bilirubin 0.2 mg/dL (0.15-1.2); Total Protein 5.7 g/dL (6.6-8.7)
[2021-11-16 01:43] LABS: Lactate (Lactic Acid level) 0.8 mmol/L (0.5-2.2)
[2021-11-16] MEDS: metoclopramide 5 mg/mL SDV 2 mL 10 MG IVP (01:43)
[2021-11-16 01:48] VITALS: PULSE 69; RESP 17; O2SAT 97
[2021-11-16 02:42] VITALS: BP 123/60; PULSE 79; O2SAT 99
== END 2021-11-16 02:43 | disposition home or self-care (01) ==
PROVIDERS: Emergency Medicine; Emergency Provider Physician Assistant
DX: B34.9 Viral infection, unspecified (principal); D64.9 Anemia, unspecified
CPT/HCPCS: 80053; 81001; 81025; 83605; 83690; 85025; 87086; 96361; 96374; 96375; 99284; J1885; J2405; J2765; J2930; J7030

== ENCOUNTER 2021-11-20 20:37 | Emergency (ER) | payer BC, SELFPAY ==
[2021-11-20 20:46] VITALS: BP 147/82; PULSE 84; RESP 18; TEMP 36.1; O2SAT 96; BMI 27.4
--- NOTE | 2021-11-20 21:05 | CTR_ITS ---
PROCEDURE INFORMATION: Exam: CT Abdomen And Pelvis With Contrast Exam date and time: 11/20/2021 9:05 PM Age: 20 years old Clinical indication: Abdominal pain; Epigastric; Patient HX: Luq pain x4 days; Additional info: L/upper abdominal pain TECHNIQUE: Imaging protocol: Computed tomography of the abdomen and pelvis with contrast. Radiation optimization: All CT scans at this facility use at least one of these dose optimization techniques: automated exposure control; mA and/or kV adjustment per patient size (includes targeted exams where dose is matched to clinical indication); or iterative reconstruction. Contrast material: OMNI 300; Contrast volume: 95 ml; Contrast route: INTRAVENOUS (IV); COMPARISON: CT abdomen pelvis w con* [id number] 11/14/2021 6:36 PM RADIATION DOSE METRICS: Total DLP (mGy-cm): 1280.39 FINDINGS: Liver: Normal. No mass. Gallbladder and bile ducts: Normal. No calcified stones. No ductal dilation. Pancreas: Normal. No ductal dilation. Spleen: Normal. No splenomegaly. Adrenal glands: Normal. No mass. Kidneys and ureters: Normal. No hydronephrosis. Stomach and bowel: No intestinal obstruction. A large amount of stool is present in the colon. Appendix: The appendix is normal. Intraperitoneal space: Trace free fluid in the pelvis is likely physiologic. No free air. Vasculature: Unremarkable. No abdominal aortic aneurysm. Lymph nodes: Numerous mildly prominent mesenteric lymph nodes are appreciated. Urinary bladder: Unremarkable as visualized. Reproductive: The uterus is and ovaries appear normal. Bones/joints: Unremarkable. No acute fracture. Soft tissues: Unremarkable. CT/CT abdomen pelvis w con* [id number] IMPRESSION: 1. Possible mild mesenteric adenitis. 2. Constipation.
--- NOTE | 2021-11-20 21:05 | W.ED.ABDPA2 ---
HPI - Abdominal Pain General: Chief Complaint: Abdominal Pain Stated Complaint: Enlarged Spleen Pain- Abd and Up Time Seen by Provider: 11/20/21 20:47 Source: patient Mode of arrival: ambulatory Limitations: no limitations History of Present Illness: Patient is a 20-year-old female presents to ED today with a complaint of epigastric and left upper quadrant abdominal pain. Patient tells me earlier today while riding in a car she began feeling very tired. She states she developed some discomfort in the left side of her abdomen that radiated up into her left shoulder and pelvis. She states later that evening after she attempted eating she began developing sharp left upper quadrant pains and immediately felt nauseous and have the urge to defecate. She states she threw up her dinner. Patient has been seen several times over the past 2 weeks for viral-like illness. She had reportedly been diagnosed with mononucleosis although this test was never reported. She was told at one point her spleen was enlarged however her CT scan from previous visit was normal. Patient has had symptoms consisting of fevers, headache, abdominal pain, nausea, diarrhea. She at one point was treated for UTI however culture came back negative. Patient states she had actually been feeling really well over the past several days and felt like she was recovering. She is no longer running fevers. Patient had had testing for COVID, influenza, and strep which were all negative. Associated Symptoms: Reports nausea and vomiting; Denies chills, diarrhea, dysuria, fever(s), hematuria, hematemesis and syncope Review of Systems Const: Reports: fatigue; Denies: fever(s), chills or body aches Eyes: Denies: change in vision or blurry vision ENMT: Denies: throat pain, odynophagia, nasal discharge or nasal congestion Card: Denies: chest pain, palpitations, irregular heart rhythm, edema, swelling of feet/ankles, lightheadedness, syncope, pre-syncope or dyspnea on exertion Resp: Denies: dyspnea, productive cough, wheezing, hemoptysis or chest congestion GI: Reports: abdominal pain, nausea and vomiting; Denies: hematemesis or diarrhea : Denies: flank pain, dysuria or hematuria Musc: Denies: neck pain, back pain, extremity pain or joint pain Skin/Breast: Denies: rash Neuro: Reports: headache(s); Denies: numbness in extremities, weakness in extremities, sensory changes, lack of coordination, difficulty walking or dizziness PFSH ED PFSH: Medical History History of tonsillitis No pertinent past medical history neghx: htn,dm,thyroid,dvt/pe PCP: [facility] History History of reduction mammoplasty (~2019) Family History Grandmother Breast cancer Paternal--dx age unknown Diabetes Paternal Ovarian cancer Maternal--dx age 30 Father Hypertension Mother No problems noted. Family/Other Thyroid disease Paternal side in general Other Psychiatric illness Denies family history of Colon cancer Heart disease Hypercholesteremia Uterine cancer Stroke Social History Smoking and tobacco status: never smoked Alcohol intake: never Special daron needs: No Physical Exam Const: COMMON NORMALS: no acute distress, average body habitus, patient oriented x3, no limitations, healthy appearing, alert and well nourished GENERAL APPEARANCE: cooperative ORIENTATION/CONSCIOUSNESS: Yes awake, Yes oriented to person, Yes oriented to place and Yes oriented to time OTHER: appears flushed HENMT: COMMON NORMALS: normocephalic and atraumatic HEAD & SCALP: normal to inspection, normocephalic and atraumatic FACE & SINUS: normal facial exam MOUTH: Normal oral and palatal mucosa present, lip normal and tongue normal THROAT: posterior oropharynx normal Eye: GENERAL EYE: appearance normal, both eyes and all related structures Neck/C-Spine: COMMON NORMALS: full ROM, no lymphadenopathy and no meningeal signs Chest: COMMONS NORMALS: normal inspection of the chest OTHER: TTP L lower anteriolatera chest wall Resp: COMMON NORMALS: normal respiratory effort and clear to auscultation bilaterally AUSCULTATION: clear to auscultation bilaterally Cardio: COMMON NORMALS: regular rate and regular rhythm RATE: regular rate RHYTHM: regular rhythm GI: COMMON NORMALS: Normal to inspection, nondistended, normoactive bowel sounds present, Soft to palpation, No hepatosplenomegaly present and no masses AUSCULTATION: Yes normoactive bowel sounds PALPATION: Yes Soft to palpation, Yes Tenderness to palpation present (GI) (epigastric/LUQ) and Yes No hepatosplenomegaly present : COMMON NORMALS: Yes no CVA tenderness BLADDER/KIDNEY EXAM: Yes no CVA tenderness Back/Pelvis: COMMON NORMALS: no CVA tenderness, thoracic and lumbar spine normal to inspection, no thoracic nor lumbar tenderness and thoraco-lumbar ROM normal Extremity: COMMON NORMALS: normal to inspection GENERAL: Yes normal exam except as noted Neuro: COMMON NORMALS: patient oriented x3, moves all extremities, no focal motor deficits and no sensory deficits noted SENSORIUM/ORIENTATION: Yes alert, Yes oriented to person, Yes oriented to place and Yes oriented to time MENINGEAL SIGNS: Yes no meningeal signs Skin: COMMON NORMALS: no rashes or lesions noted GENERAL SKIN EXAM: no rashes or lesions noted Course Vital Signs: Vital signs: Vital Signs Temperature 96.9 F L 11/20/21 20:46 Pulse Rate 67 11/20/21 23:14 Respiratory Rate 18 11/20/21 23:14 Blood Pressure 98/60 11/20/21 23:14 Pulse Oximetry 96 11/20/21 23:14 MDM - Abdominal Pain Medical Decision Making Patient clinically appears in no acute distress. Her vital signs are normal. Lab work is unremarkable. CT imaging showing possible mesenteric adenitis and a large amount of colonic stool-both they feel are most likely incidental findings. She did get some relief from a GI cocktail here so discussed possibility of upper GI etiologies although this most likely would not explain her other symptoms that have been present over the past 2 weeks. Certainly EBV or similar viral illness could be contributing. Recommend she follow-up with her primary care provider as soon as possible for further evaluation. Lab Data : 11/20/21 20:55 11/20/21 20:55 Labs/Radiology: Radiology Impressions Abdomen/Pelvis CT 11/20/21 21:05 IMPRESSION: 1. Possible mild mesenteric adenitis. 2. Constipation. Laboratory Results WBC 5.2 10^3/uL (4.5-13.0) 11/20/21 20:55 RBC 4.71 10^6/uL (4.1-5.3) 11/20/21 20:55 Hgb 12.3 g/dL (11.5-15.3) 11/20/21 20:55 Hct 39.3 % (37.0-47.0) 11/20/21 20: MCV 83.4 fl (81-99) 11/20/21 20: MCH 26.1 pg (28.0-34.0) L 11/20/21 20: MCHC 31.3 g/dL (30.0-36.0) 11/20/21 20: RDW 12.8 % (12.1-15.1) 11/20/21 20: Plt Count 316 10^3/cmm (130-400) 11/20/21 20: MPV 10.6 fL (7.4-10.4) H 11/20/21 20:55 Neut % (Auto) 25.4 % 11/20/21 20: Lymph % (Auto) 65.2 % 11/20/21 20: [place] % (Auto) 6.5 % 11/20/21 20: Eos % (Auto) 1.0 % 11/20/21 20: Baso % (Auto) 1.7 % 11/20/21 20: Neut # (Auto) 1.32 10^3/uL (1.8-8.0) L 11/20/21 20: Lymph # (Auto) 3.4 10^3/uL (1.5-6.5) 11/20/21 20: [place] # (Auto) 0.3 10^3/uL (0.2-0.9) 11/20/21 20: Eos # (Auto) 0.1 10^3/uL (0.0-0.8) 11/20/21 20: Baso # (Auto) 0.1 10^3/uL (0.0-0.1) 11/20/21 20: Nucleated RBC % (auto) 0 % 11/20/21 20: Nucleated RBCs # 0.0 /100WBC 11/20/21 20: Sodium 139 mmol/L (136-145) 11/20/21 20: Potassium 3.8 mmol/L (3.5-5.1) 11/20/21 20: Chloride 103 mmol/L (98-107) 11/20/21 20: Carbon Dioxide 24 mmol/L (22-29) 11/20/21 20: Anion Gap 15.8 (5-19) 11/20/21 20:55 BUN 11 mg/dL (6-20) 11/20/21 20:55 Creatinine 0.8 mg/dL (0.5-0.9) 11/20/21 20:55 GFR Calculation 92.4 mL/min (90-130) 11/20/21 20:55 Glucose 96 mg/dL (65-115) 11/20/21 20:55 Calculated Osmolality 287 mOsm/kg (285-295) 11/20/21 20:55 Calcium 9.6 mg/dL (8.5-10.5) 11/20/21 20:55 Total Bilirubin 0.4 mg/dL (0.15-1.2) 11/20/21 20:55 AST 15 U/L (0-32) 11/20/21 20:55 ALT 13 U/L (0-33) 11/20/21 20:55 Alkaline Phosphatase 61 IU/L (35-105) 11/20/21 20:55 C-Reactive Protein 3.0 mg/L (0.0-4.9) 11/20/21 20:55 Total Protein 7.2 g/dL (6.6-8.7) 11/20/21 20:55 Albumin 4.9 g/dL (3.5-5.2) 11/20/21 20:55 Globulin 2.3 g/dL (1.3-4.6) 11/20/21 20:55 Lipase 49 U/L (13-60) 11/20/21 20:55 Urine Color Yellow (Yellow) 11/20/21 22:00 Urine Appearance Clear (CLEAR) 11/20/21 22:00 Urine pH 7 (5-7) 11/20/21 22:00 Ur Specific [place] 1.010 (1.005-1.030) 11/20/21 22:00 Urine Protein 1+ (Negative) H 11/20/21 22:00 Urine Glucose (UA) Norm (Normal) 11/20/21 22:00 Urine Ketones Negative (Negative) 11/20/21 22:00 Urine Blood Neg (Negative) 11/20/21 22:00 Urine Nitrate Negative (Negative) 11/20/21 22:00 Urine Bilirubin Neg (Negative) 11/20/21 22:00 Urine Urobilinogen 1 mg/dL (Negative) H 11/20/21 22:00 Ur Leukocyte Esterase Negative (Negative) 11/20/21 22:00 Urine RBC 0-4 /hpf (0-2) H 11/20/21 22:00 Urine WBC 5-10 /hpf (0-5) H 11/20/21 22:00 Ur Squamous Epith Cells 10-15 /hpf (0-5) H 11/20/21 22:00 Amorphous Sediment Not Reportable 11/20/21 22:00 Urine Bacteria 2+ /hpf (NONE) H 11/20/21 22:00 Discharge Plan Discharge Patient Disposition: Home Clinical Impression: LUQ abdominal pain Condition: Stable Prescriptions: No Action albuterol sulfate 90 mcg/actuation HFA aerosol inhaler 2 puff inhalation Q6H PRN0RF medroxyprogesterone [Depo-Provera] 150 mg/mL suspension IM 0RF cefdinir 300 mg capsule 300 mg PO BID Qty: 20 0RF ondansetron 4 mg tablet,disintegrating 4 mg PO Q6H PRN (Reason: nausea and vomiting) Qty: 14 0RF prednisone 20 mg tablet 20 mg PO BID 5 Days Qty: 10 0RF meclizine 25 mg tablet 25 mg PO QID PRN (Reason: nausea and vomiting) Qty: 30 0RF Discharge Orders: Discharge ED (Routine); Ordered 11/20/21 Ordered By: Geetha Diggs Coding Level of Care Code ED [employer] Product Tester for Chg Fwd Exam Comprehensive
[2021-11-20 21:19] LABS: Basophils # 0.1 10^3/uL (0.0-0.1); Basophils % 1.7 %; Eosinophils # 0.1 10^3/uL (0.0-0.8); Hematocrit 39.3 % (37.0-47.0); Hemoglobin 12.3 g/dL (11.5-15.3); Lymphocytes # 3.4 10^3/uL (1.5-6.5); Lymphocytes % 65.2 %; Mean Corpuscular HGB Conc 31.3 g/dL (30.0-36.0); Mean Corpuscular Hemoglobin 26.1 pg (28.0-34.0); Mean Corpuscular Volume 83.4 fl (81-99); Mean Platelet Volume 10.6 fL (7.4-10.4); Monocytes # 0.3 10^3/uL (0.2-0.9); Monocytes % 6.5 %; Neutrophils # 1.32 10^3/uL (1.8-8.0); Neutrophils % 25.4 %; Nucleated Red Blood Cells % 0 %; Platelet Count 316 10^3/cmm (130-400); Red Blood Count 4.71 10^6/uL (4.1-5.3); Red Cell Distribution Width 12.8 % (12.1-15.1); White Blood Count 5.2 10^3/uL (4.5-13.0)
[2021-11-20] MEDS: iohexol 300 mg/mL 100 mL Btl IV (21:20)
[2021-11-20 21:42] LABS: Alanine Aminotransferase 13 U/L (0-33); Albumin Level 4.9 g/dL (3.5-5.2); Alkaline Phosphatase 61 IU/L (35-105); Anion Gap 15.8 (5-19); Aspartate Amino Transferase 15 U/L (0-32); Blood Urea Nitrogen 11 mg/dL (6-20); Calcium 9.6 mg/dL (8.5-10.5); Carbon Dioxide 24 mmol/L (22-29); Chloride 103 mmol/L (98-107); Globulin 2.3 g/dL (1.3-4.6); Glomerular Filtration Rate 92.4 mL/min (90-130); Glucose 96 mg/dL (65-115); Lipase 49 U/L (13-60); Osmolality Calculated 287 mOsm/kg (285-295); Potassium 3.8 mmol/L (3.5-5.1); Sodium 139 mmol/L (136-145); Total Bilirubin 0.4 mg/dL (0.15-1.2); Total Protein 7.2 g/dL (6.6-8.7)
[2021-11-20] MEDS: ondansetron 2 mg/ML SDV 2 mL 4 MG IVP (22:23)
[2021-11-20] MEDS: lidocaine 2% viscous 15 ML, aluminum-mag hydrox-simethicon 30 ML, sucralfate oral liq 1 GM PO (22:26)
[2021-11-20 22:30] LABS: Add Urine Microscopic? YES; Bilirubin Urine Neg (Negative); Blood Urine Neg (Negative); Glucose Urine UA Norm (Normal); Ketones Urine Negative (Negative); Leukocyte Esterase Urine Negative (Negative); Nitrate Urine Negative (Negative); Protein Urine 1+ (Negative); Urine Appearance Clear (CLEAR); Urine Color Yellow (Yellow); Urobilinogen Urine 1 mg/dL (Negative); pH Urine 7 (5-7)
[2021-11-20 22:31] LABS: Add Urine Culture? No; Bacteria Urine 2+ /hpf; RBC Urine 0-4 /hpf (0-2)
[2021-11-20 23:14] VITALS: BP 98/60; PULSE 67; RESP 18; O2SAT 96
== END 2021-11-20 23:15 | disposition home or self-care (01) ==
PROVIDERS: Emergency Provider Physician Assistant
DX: R10.32 Left lower quadrant pain (principal)
CPT/HCPCS: 74177; 80053; 81001; 83690; 85025; 86140; 96374; 99283; J2405; Q9967

== ENCOUNTER 2021-12-13 12:14 | Outpatient (CLI) | payer BC, SELFPAY ==
--- NOTE | 2021-12-13 13:34 | XR_ITS ---
WS: [id number] PROCEDURE: XR chest 2V* [id number] CLINICAL INFORMATION: SHORTNESS OF BREATH/LYMPHADENOPATHY/FEVER COMPARISON: 018 FINDINGS: Heart: Normal cardiac silhouette. Lungs: Lungs are clear. No consolidation or pleural fluid. No focal pneumonia. Bones: Normal visualized bony structures. XR/XR chest 2V* [id number] IMPRESSION: Normal chest
[2021-12-13 13:48] LABS: Basophils # 0.1 10^3/uL (0.0-0.1); Basophils % 1.9 %; Eosinophils # 0.2 10^3/uL (0.0-0.8); Eosinophils % 3.7 %; Hematocrit 36.8 % (37.0-47.0); Hemoglobin 11.6 g/dL (11.5-15.3); Lymphocytes # 2.4 10^3/uL (1.5-6.5); Lymphocytes % 48.8 %; Mean Corpuscular HGB Conc 31.5 g/dL (30.0-36.0); Mean Corpuscular Volume 82.5 fl (81-99); Mean Platelet Volume 10.6 fL (7.4-10.4); Monocytes # 0.5 10^3/uL (0.2-0.9); Monocytes % 9.7 %; Neutrophils # 1.74 10^3/uL (1.8-8.0); Neutrophils % 35.7 %; Nucleated Red Blood Cells % 0 %; Platelet Count 303 10^3/cmm (130-400); Red Blood Count 4.46 10^6/uL (4.1-5.3); Red Cell Distribution Width 13.6 % (12.1-15.1); White Blood Count 4.9 10^3/uL (4.5-13.0)
[2021-12-13 13:52] LABS: Alanine Aminotransferase 23 U/L (0-33); Albumin Level 4.6 g/dL (3.5-5.2); Alkaline Phosphatase 67 IU/L (35-105); Anion Gap 13.6 (5-19); Aspartate Amino Transferase 26 U/L (0-32); Blood Urea Nitrogen 7 mg/dL (6-20); Calcium 8.9 mg/dL (8.5-10.5); Carbon Dioxide 24 mmol/L (22-29); Chloride 104 mmol/L (98-107); Glomerular Filtration Rate 107.8 mL/min (90-130); Glucose 93 mg/dL (65-115); Osmolality Calculated 284 mOsm/kg (285-295); Potassium 3.6 mmol/L (3.5-5.1); Sodium 138 mmol/L (136-145); Total Bilirubin 0.2 mg/dL (0.15-1.2); Total Protein 6.6 g/dL (6.6-8.7)
[2021-12-13 13:54] LABS: Erythrocyte Sedimentation Rate 3 mm/hr (0-15)
[2021-12-13 14:04] LABS: Add Urine Culture? No; Bilirubin Urine Neg (Negative); Blood Urine Neg (Negative); Glucose Urine UA Norm (Normal); Ketones Urine Negative (Negative); Nitrate Urine Negative (Negative); Protein Urine Neg (Negative); Squamous Epithelial Cell Urine RARE /hpf (0-5); Urine Appearance Clear (CLEAR); Urine Color Yellow (Yellow); Urobilinogen Urine Neg (Negative); pH Urine 7 (5-7)
[2021-12-13 14:09] LABS: Leukocyte Esterase Urine Negative (Negative)
[2021-12-13 14:38] LABS: HIV 1 & 2 Antibody Non-Reactive (Non-Reactiv); HIV 1 & 2 Antigen Non-Reactive (Non-Reactiv)
[2021-12-13 15:16] LABS: Hepatitis B Core IgM Non-Reactive (Nonreactive); Hepatitis B Surface Antigen Non-Reactive (Nonreactive); Hepatitis C Virus Antibody Non-Reactive (Nonreactive)
[2021-12-14 12:22] LABS: Lyme AB Screen <0.90 index
[2021-12-17 17:26] LABS: Anti-Nuclear Antibody Screen POSITIVE (NEGATIVE)
[2021-12-18 18:32] LABS: RMSF IGG NOT DETECTED; RMSF IGM NOT DETECTED
[2021-12-19 17:24] LABS: E. Chaffeensis AB IGG <1:64; E. Chaffeensis AB IGM <1:20
== END 2021-12-13 12:15 | disposition home or self-care (01) ==
PROVIDERS: Visit Provider Nurse Practitioner Family
DX: R06.02 Shortness of breath (principal); R59.1 Generalized enlarged lymph nodes; R50.9 Fever, unspecified; R19.7 Diarrhea, unspecified
CPT/HCPCS: 71046; 80053; 80074; 81001; 85025; 85651; 86038; 86140; 86618; 86666; 86709; 86757; 87493; 87806

== ENCOUNTER 2021-12-19 11:04 | Outpatient (CLI) | payer BC, SELFPAY ==
[2021-12-20 13:38] LABS: EBV IGM TEST <36.00 U/mL
[2021-12-21 12:38] LABS: Anti-Double Strand DNA AB 2 IU/mL; Jo-1 Antibody <1.0 NEG AI (<1.0 NEG); SM/RNP Antibodies <1.0 NEG AI (<1.0 NEG); SS-B/LA IGG <1.0 NEG AI (<1.0 NEG); Scleroderma Ab(Scl-70) Ab <1.0 NEG AI (<1.0 NEG); Ss-A/Ro Igg <1.0 NEG AI (<1.0 NEG)
== END 2021-12-19 11:05 | disposition home or self-care (01) ==
PROVIDERS: Visit Provider Physician Assistant Medical
DX: R59.0 Localized enlarged lymph nodes (principal)
CPT/HCPCS: 36415; 86225; 86235; 86664; 86665; 86738